=== PATIENT | female | born 1960 | race Caucasian/White ===

== ENCOUNTER → 2020-04-16 10:57 | Outpatient (CLI) | payer MEDICARE ==
[~2020-04-16 10:57] MED LIST: BACLOFEN20 M1; BAYER CHEWABLE81 MG; CATAPRES0.1 MG; DEXILANT30 MG; ELIQUIS5 MG PO; HYDROCODON-ACE1 EA10; HYDROCODON-ACE1 EA10 PO; KLONOPIN0.5 MG PO; LISINOPRIL40 MG; NORVASC10 MG; OMNICEF300 MG; PHENERGAN25 M1; PROVIGIL200 MG; SYMBICORT 16010.2 GM; ULTRAM50 MG; ZOFRAN4 MG PO; ZOLOFT100 MG
--- NOTE | 2020-04-21 08:21 | EC ---
PATIENT:PAULY DALE DATE OF SERVICE: 04/16/20 SEX: F MEDICAL RECORD: [id number] DATE OF : 62 [facility] AGE OF PATIENT: 59 ADMISSION DATE: 04/16/20 REFERRING PHYSICIAN: INTERPRETING PHYSICIAN: RANJIT HADLEY MD ECHOCARDIOGRAM REPORT ECHO CHARGES 4 ECHO COMPLETE Date: 04/16/20 CLINICAL DIAGNOSIS: HEART MURMUR ECHOCARDIOGRAPHIC MEASUREMENTS (adult normal given) AC root (d.<3.7cm) 2.9 cm LV Septum d (<1.2 cm> 1.3 cm Valve Excursion 1.5 cm LV Septum (systole) 1.7 cm Left Atria (s.<4.0cm> 3.6 cm LVPW d(<1.2cm) 1.3 cm RV (d.<2.3cm) 3.3 cm LVPW (sytole) 1.9 cm LV diastole(<5.6CM) 5.3 cm MV E-F(>70mm/sec) cm LV systole 3.1 cm LVOT Diameter 1.9 cm MV exc.(>10mm) 1.3 cm Est.ejection fraction (50-75%) % DOPPLER: LVIT cm/sec A 95.0 cm/sec E 68.0 cm/sec LA cm/sec RVSP 17 mmHg LVOT 103 cm/sec AOP1/2T m/s Asc. Ao 137 cm/sec RVOT 54 cm/sec RA cm/sec PA 110 cm/sec AV Gradient Peak 7.50 mmHg AV Mean 4.04 mmHg AV Area 2.4 cm MV Gradient Peak 3.35 mmHg MV Mean 1.14 mmHg MV Area cm COMMENTS: Delivery Crew Member: 2 MARVIN EVANS Slag Motor Operator: 3 Dr. Lucero TAPE# PACS Pericardial Effusion N DATE OF SERVICE: Adequate 2D, color flow imaging, spectral Doppler, and M-Mode. LVH is present. LV internal dimension is normal. Wall motion is normal. EF is greater than or equal to 55%. Aortic valve is tricuspid. No evidence of stenosis by Doppler interrogation. Left atrium is normal at 3.6 cm. Mitral valve shows no prolapse. Trace MR. Right-sided chambers are grossly normal. Trace TR. ECHOCARDIOGRAM REPORT [id number] PAULY DALE TRANSINT:[id number] Voice Confirmation ID: [id number] DOCUMENT ID: [id number] RANJIT HADLEY MD at 0821 CC: [id number] DICTATION DATE: 04/20/20 121 BUFFER NICKEL: 04/20/202037 DEP CLI 04/16/20 [place] [id number] [place] [id number]
== END | disposition home or self-care (01) ==
LOC: D.HCCECHO 09:30
PROVIDERS: ATTEND Internal Medicine Cardiovascular Disease
DX: R01.1 Cardiac murmur, unspecified (principal)

== ENCOUNTER → 2020-04-27 09:14 | Outpatient (CLI) | payer MEDICARE | END | disposition home or self-care (01) | LOC: D.HCCARDIO 04-21 10:30 | PROVIDERS: ATTEND Internal Medicine Cardiovascular Disease | DX: R07.9 Chest pain, unspecified (principal) ==

== ENCOUNTER 2020-10-25 16:06 | Emergency (ER) | payer MEDICARE ==
[~2020-10-25] VITALS: Ht 157.5 cm; Wt 59.1 kg
[2020-10-25 16:08] VITALS: BP 136/76; Ht 157.5 cm; Wt 59.1 kg
[2020-10-25] MEDS ORDERED: HYDROCODON-ACE1 EAC7 PO (17:47)
== END 2020-10-25 18:03 | disposition home or self-care (01) ==
LOC: D.ER 16:06
DX: S32.591A Other specified fracture of right pubis, initial encounter for closed fracture (principal); I10 Essential (primary) hypertension; G35 Multiple sclerosis; G25.81 Restless legs syndrome; X58.XXXA Exposure to other specified factors, initial encounter